=== PATIENT | male | born 1950 | race Caucasian/White ===

== ENCOUNTER → 2019-10-16 | Outpatient (CLI) | payer OTHER ==
[2019-10-16 07:45] VITALS: BP 121/55
--- NOTE | 2019-10-20 09:28 | CATHLAB ---
[facility] [address] [place] [address] INVASIVE PROCEDURE REPORT Name: GHULAM DUMONT Room #: REG Radha#: [id number] Admission: 10/16/19 Attend Phys: Pierre Jasso, Discharge: Date of : 54 Report #: [id number] THIS REPORT FOR: //name// CC: Pierre Stewart Estela PROCEDURE: Medtronic Reveal LINQ implantation. INDICATIONS: Near syncope, palpitations. DESCRIPTION OF PROCEDURE: The potential benefits and risks of the procedure were discussed at length with the patient who understood. Full written and informed consent was obtained. The patient's left anterior chest was prepped and draped in a sterile fashion. 1% Xylocaine was used in the region of the fourth intercostal space. A 1 cm stab wound was placed with insertion of a Medtronic Reveal LINQ device, serial number [id number]. Device was working according to specifications. A single bioabsorbable stitch was placed. The stab incision was dressed. He was discharged to home in stable condition. IMPRESSION: Successful placement of a Medtronic Reveal LINQ implantable loop recorder. <ELECTRONICALLY SIGNED> By: Pierre Jasso MD, [facility] 10/20/19 0928 0901 [id number] Pierre Jasso MD, FACC /nt
== END | disposition home or self-care (01) ==
LOC: CATH 07:06
DX: R55 Syncope and collapse (principal); R00.2 Palpitations

== ENCOUNTER → 2019-11-22 | Outpatient (CLI) | payer OTHER ==
[~2019-11-22] MED LIST: CRESTOR20 MG PO; MINOCYCLINE HC100 M2 PO
== END ==
LOC: SJCVC 15:34
DX: R00.1 Bradycardia, unspecified (principal); R94.31 Abnormal electrocardiogram [ECG] [EKG]; I48.91 Unspecified atrial fibrillation; E78.00 Pure hypercholesterolemia, unspecified; E78.5 Hyperlipidemia, unspecified; Z79.899 Other long term (current) drug therapy

== ENCOUNTER → 2019-12-11 | Outpatient (CLI) | payer OTHER ==
--- NOTE | ~2019-12-11 | P ---
[facility] [address] [place] [address] PROCEDURE REPORT Name: GHULAM DUMONT Room #: REG OLGAPaco Garcia#: [id number] Admission: 12/11/19 Attend Phys: Nicko Griffin MD Discharge: Date of : 54 Report #: [id number] THIS REPORT FOR: //name// CC: FAM unknown Nicko Griffin PROCEDURE: Implantable loop recorder removal. PREOPERATIVE DIAGNOSIS: Possible implantable loop recorder infection. POSTOPERATIVE DIAGNOSIS: Possible implantable loop recorder infection. HISTORY: The patient is a 69-year-old male recently had an implantable loop recorder implanted by another physician and appears that it is not affected. He has been on antibiotics. He is here for device removal. DESCRIPTION OF PROCEDURE: The patient underwent informed consent. He was then prepped and draped in sterile fashion. I injected lidocaine at the incision site. Incision was made. The device was removed using forceps. A dressing was placed over the incision. There were no procedure related complications. CONCLUSIONS: Successful explantation of an implantable loop recorder. By: [id number] 0010 Nicko Griffin MD /nt
--- NOTE | 2019-12-11 14:46 | NUR ---
ILR REMOVAL PERFORMED BY DR. PETERS. TIME OUT: 1353. START TIME: 1354. LIDOCAINE: 10 mL. CASE END: 1401. PT TOLERATED PROCEDURE WELL. INCISION COVERED WITH STERI-STRIP, 4X4 AND TEGADERM. PT HAS BEEN INSTRUCTED TO REMOVE TEGADERM IN AM AND STERI-STRIP ON WEDNESDAY. PT WILL RECEIVE PPM ON 12/18/2019. PT HAS NO QUESTIONS AT THIS TIME AND WAS STABLE AT TIME OF DISCHARGE.
== END | disposition home or self-care (01) ==
LOC: CATH 13:16
DX: Z45.09 Encounter for adjustment and management of other cardiac device (principal)

== ENCOUNTER 2019-12-18 06:36 | Observation (INO) | payer OTHER ==
[~2019-12-18] VITALS: Ht 175.3 cm; Wt 86.2 kg
[2019-12-18] VITALS (9 sets, daily range): BP systolic 101–144; BP diastolic 57–78
[2019-12-18] MEDS ORDERED: CRESTOR20 MG PO (07:21)
[2019-12-18 07:22] LABS: ABSOLUTE NEUTROPHILS 3.7 thou/uL (1.4-8.2); BASOPHILS 0.9 % (0.0-2.0); EOSINOPHILS 6.7 % (0.0-3.0); HEMATOCRIT 42.9 % (42.0-52.0); HEMOGLOBIN 13.8 gm/dL (14.0-18.0); MCH 30.6 pg (26.0-34.0); MCHC 32.3 g/dL (28.0-37.0); MONOCYTES 8.2 % (1.0-8.0); PLATELET COUNT 171 thou/uL (150-400); POLYS 55.2 % (36.0-66.0); RBC 4.52 mil/uL (4.50-6.00); RDW 14.3 % (10.5-14.5); WBC 6.7 thou/uL (4.0-11.0)
[2019-12-18 07:30] LABS: CALCIUM 9.1 mg/dL (8.5-10.1); CREATININE 1.1 mg/dL (0.7-1.3)
[2019-12-18 07:31] LABS: POTASSIUM 4.7 mmol/L (3.5-5.1)
[2019-12-18 07:37] LABS: PROTIME 10.2 Seconds (9.3-11.4)
--- NOTE | 2019-12-18 17:44 | NUR ---
PT. ARRIVED AT FLOOR AROUND 1115; AOX4; NO C/O PAIN; L. UPPER CHEST; C/D/I; EDUCATED ABOUT KEEPING HEAD OF BEAD AT LEAST TO [address] DE[address]ES; [facility] [facility]; EDUCATED ABOUT FALL PREVENTIONS; CALLING BEFORE STANDING FROM BED DUE TO HX OF DIZZINESS; [facility]; EDUCATED ABOUT USING URINAL WHEN VOIDING; [facility]; APACED ON MONITOR; VS WNL; ASSESSMENT CHARGED; FOLLOWING POC; WILL PASS ON REPORT;
[2019-12-19 00:27] VITALS: BP 124/64
--- NOTE | 2019-12-19 04:48 | NUR ---
A/O X 4.PAIN WELL CONTROLLED WITH HYDROCODONE.LEFT ARM IMMOBILIZER/SLING INTACT.ANTIBIOTIC IV GIVEN.MONITOR SHOWS A PACED RHYTHM.POC CONTINUED.
[2019-12-19 05:02] VITALS: BP 118/54
[2019-12-19] MEDS ORDERED: MINOCYCLINE HC100 M2 PO (08:24)
[2019-12-19 08:40] VITALS: BP 113/72
[2019-12-19 10:19] VITALS: BP 113/72
--- NOTE | 2019-12-19 11:28 | NUR ---
RECEIVED PT'S CARE AROUND 0710; PT. ON BED; RESTING WITH EYES CLOSED; EQUAL CHEST RISING NOTICED; DURING AM ASSESSMENT PT. AOX4; NO C/O PAIN; PACEMAKER SITE C/D/I; NO HEMATOMA; NO D/C ORDERS ON PLACE; APACED ON THE MONITOR; AROUND 1100 PT. C/O HEADACHE; PRN PAIN MEDICATION GIVEN; ASSESSMENT CHARGED; FOLLOWING POC; WAITING FOR D/C ORDERS;
[2019-12-19 11:40] VITALS: BP 113/72
--- NOTE | 2019-12-22 11:21 | P ---
[facility] [place] [address] PROCEDURE REPORT Name: GHULAM DUMONT Room #: [facility] Stewart Garcia#: [id number] Admission: 12/18/19 Attend Phys: Nicko Griffin MD Discharge: 12/19/19 Date of : 54 Report #: [id number] THIS REPORT FOR: cc: MYRNA - No family physician/PCP MYRNA - Jessi family physician/PCP Nicko Griffin MD ~ THIS REPORT FOR: //name// CC: MYRNA physician/PCP Nicko Griffin PACEMAKER IMPLANT PREOPERATIVE DIAGNOSIS: Sick sinus syndrome. POSTOPERATIVE DIAGNOSIS: Sick sinus syndrome. HISTORY OF PRESENT ILLNESS: The patient is a 69-year-old male with history of sick sinus syndrome here for pacemaker implantation. ANESTHESIA: The patient underwent MAC anesthesia with no anesthesia related complications. DESCRIPTION OF PROCEDURE: The patient underwent informed consent. We discussed the details of the procedure including the risks, which include but not limited to bleeding, infection, vascular damage, cardiac perforation, pneumothorax. He understood these risks and is willing to proceed. The patient was brought to EP laboratory in a fasting and sedated state and prepped and draped in a sterile fashion. He underwent venogram showing patency of left axillary vein, he received IV antibiotics. Prior to the pacemaker implant, the patient had an implantable loop recorder inserted by another physician. This appeared to potentially either gotten infected or maybe he had a reaction to the suture. It did appear to have improved with antibiotics. As such, today I decided to use Monocryl suture just in case he has a suture allergy. The patient was prepped in a standard fashion. I injected lidocaine at the incision site. Incision was made, pocket was created. Access was obtained twice to left axillary vein and leads were positioned into the right ventricular apex and right atrial appendage. The atrial lead did dislodge once and was repositioned and found to be within stable position. Both leads had adequate pacing and sensing thresholds. The leads were sutured to prepectoral fascia using Ethibond suture. The pocket was closed in 2 layers of Monocryl suture, 2-0 for the deep layer, 3-0 for the mid layer and surgical glue for the outer skin layer. The patient awoke neurologically and hemodynamically intact. [address] [address] PROCEDURE REPORT Name: GHULAM DUMONT Room #: [address] [facility] Stewart Garcia#: [id number] Admission: 12/18/19 Attend Phys: Nicko Griffin MD Discharge: 12/19/19 Date of : 54 Report #: [id number] complications and no significant bleeding. The pacemaker was a [employer] model #2272, serial #[id number]. Atrial lead, [employer] model #2088TC, 52 cm, serial #[id number] and this ventricular lead was a [employer] model #2088TC, 58 cm, serial #[id number]. The atrial lead demonstrates a P-wave of greater than 5 millivolts, pacing impedance of 450 ohms and pacing threshold 0.75 volts at 0.4 milliseconds. The ventricular lead demonstrates an R-wave of 11.4 millivolts, pacing impedance of 610 ohms and a pacing threshold of 0.5 volts at 0.4 milliseconds. The device was programmed to DDDR 60-130 mode. CONCLUSIONS: 1. Successful dual-chamber pacemaker implantation. 2. Satisfactory atrial and ventricular pacing and sensing thresholds. <ELECTRONICALLY SIGNED> By: Nicko Griffin MD 12/22/19 1121 0942 0026 Nicko Griffin MD /nt
== END 2019-12-19 13:05 | disposition home or self-care (01) ==
LOC: CATH 06:36 → 2N 10:35 → CATH 12:27 → ENTRNSPT 12-19 12:39 → EDTRNSPTSTS 12-19 12:42 → 2N 12-19 13:05
PROVIDERS: ADMIT Internal Medicine Cardiovascular Disease
DX: I49.5 Sick sinus syndrome (principal); I48.91 Unspecified atrial fibrillation; Z95.0 Presence of cardiac pacemaker
CPT/HCPCS: 62110; 62900; 70005

== ENCOUNTER → 2020-01-02 | Outpatient (CLI) | payer OTHER | LOC: SJCVC 10:47 | DX: I48.0 Paroxysmal atrial fibrillation (principal); I49.5 Sick sinus syndrome; E78.5 Hyperlipidemia, unspecified; Z95.0 Presence of cardiac pacemaker; Z79.899 Other long term (current) drug therapy ==

== ENCOUNTER → 2020-03-19 | Outpatient (CLI) | payer OTHER | LOC: SJCVC 13:01 | DX: R07.9 Chest pain, unspecified (principal); I48.0 Paroxysmal atrial fibrillation; I49.5 Sick sinus syndrome; E78.5 Hyperlipidemia, unspecified; Z79.899 Other long term (current) drug therapy; Z95.0 Presence of cardiac pacemaker ==

== ENCOUNTER → 2020-05-06 | Outpatient (CLI) | payer OTHER | LOC: SJCVCIMAG 04-23 09:19 | PROVIDERS: ATTEND Internal Medicine Cardiovascular Disease | DX: R07.89 Other chest pain (principal); I48.0 Paroxysmal atrial fibrillation; I49.5 Sick sinus syndrome; R00.2 Palpitations; E78.00 Pure hypercholesterolemia, unspecified; E78.5 Hyperlipidemia, unspecified; Z79.899 Other long term (current) drug therapy; Z88.2 Allergy status to sulfonamides; Z88.5 Allergy status to narcotic agent; Z88.8 Allergy status to other drugs, medicaments and biological substances; Z95.0 Presence of cardiac pacemaker; Z82.49 Family history of ischemic heart disease and other diseases of the circulatory system ==

== ENCOUNTER → 2021-01-06 | Outpatient (CLI) | payer OTHER | LOC: SJCVC 13:08 | PROVIDERS: ATTEND Internal Medicine Cardiovascular Disease | DX: I48.0 Paroxysmal atrial fibrillation (principal); I49.5 Sick sinus syndrome; E78.00 Pure hypercholesterolemia, unspecified; R00.2 Palpitations; Z95.0 Presence of cardiac pacemaker; Z79.899 Other long term (current) drug therapy; Z88.6 Allergy status to analgesic agent; Z88.2 Allergy status to sulfonamides; Z88.8 Allergy status to other drugs, medicaments and biological substances ==

== ENCOUNTER → 2021-04-01 | Outpatient (CLI) | payer OTHER | LOC: SJCVC 08:29 | PROVIDERS: ATTEND Internal Medicine Cardiovascular Disease | DX: R94.31 Abnormal electrocardiogram [ECG] [EKG] (principal); I45.2 Bifascicular block; I49.9 Cardiac arrhythmia, unspecified; I48.0 Paroxysmal atrial fibrillation; I49.5 Sick sinus syndrome; E78.5 Hyperlipidemia, unspecified; Z88.2 Allergy status to sulfonamides; Z88.8 Allergy status to other drugs, medicaments and biological substances; Z91.040 Latex allergy status; Z95.0 Presence of cardiac pacemaker; Z79.899 Other long term (current) drug therapy; Z82.49 Family history of ischemic heart disease and other diseases of the circulatory system ==

== ENCOUNTER → 2021-09-29 | Outpatient (CLI) | payer OTHER | LOC: SJCVC 12:40 | PROVIDERS: ATTEND Internal Medicine Cardiovascular Disease | DX: I48.0 Paroxysmal atrial fibrillation (principal); E78.00 Pure hypercholesterolemia, unspecified; I49.5 Sick sinus syndrome; R00.2 Palpitations; Z95.0 Presence of cardiac pacemaker; E78.5 Hyperlipidemia, unspecified; Z98.890 Other specified postprocedural states; Z79.899 Other long term (current) drug therapy; Z88.2 Allergy status to sulfonamides; Z88.1 Allergy status to other antibiotic agents; Z88.8 Allergy status to other drugs, medicaments and biological substances ==